=== PATIENT | male | born 1970 | race Caucasian/White ===

== ENCOUNTER → 2024-06-14 | Outpatient (CLI) | payer BC ==
--- NOTE | 2024-06-14 11:36 | US ---
EXAMINATION TYPE: US thyroid st tissue head/neck DATE OF EXAM: 06/14/2024 COMPARISON: NONE CLINICAL INDICATION: Male, 54 years old with history of E04.1 THRYOID NODULE; thyroid nodules TECHNIQUE: Grayscale and color Doppler imaging of the thyroid gland. FINDINGS: GLAND SIZE: Right Lobe: 3.9 x 1.7 x 1.5 cm Overall Parenchyma: heterogeneous Left Lobe: 3.2 x 1.4 x 1.1 cm Overall Parenchyma: homogeneous Isthmus Thickness: 0.22 cm NODULES RIGHT: # of nodules measured on right: 2 1. 0.9 X 0.7 x 0.6 cm, upper mid, TIRADS Score: 4 TIRADS Category 4: Composition: Solid or almost completely solid (2 points). Echogenicity: Hypoechoic (2 points). Shape: Wider than tall (0 points). Margin: Smooth (0 points). Echogenic foci: None or large comet-tail artifacts (0 points) Recommendation: If >1.5cm: FNA; If >1cm: Follow up at 1,2, 3,5 years 2. 0.5 X 0.5 x 0.5 cm, mid mid, TIRADS Score: 5 TIRADS Category 4: Composition: Solid or almost completely solid (2 points). Echogenicity: Hypoechoic (2 points). Shape: Wider than tall (0 points). Margin: Smooth (0 points). Echogenic foci: Macrocalcifications (1 point) Recommendation: If >1.5cm: FNA; If >1cm: Follow up at 1,2, 3,5 years LEFT: # of nodules measured on left: 1 1. 1.1 X 0.7 x 0.6 cm, lower mid, TIRADS Score: 4 TIRADS Category 4: Composition: Solid or almost completely solid (2 points). Echogenicity: Hypoechoic (2 points). Shape: Wider than tall (0 points). Margin: Smooth (0 points). Echogenic foci: None or large comet-tail artifacts (0 points) Recommendation: If >1.5cm: FNA; If >1cm: Follow up at 1,2, 3,5 years ISTHMUS: # of nodules measured in the isthmus: 0 Bilateral neck scanned, no evidence of lymphadenopathy. IMPRESSION: Thyroid nodules that meet criteria for follow-up given size. [facility], , 06/14/2024 11:34 AM
== END | disposition home or self-care (01) ==
LOC: RADUSWWP 10:33
PROVIDERS: ATTEND Family Medicine
DX: E04.2 Nontoxic multinodular goiter (principal)
CPT/HCPCS: 76536